=== PATIENT | male | born 1950 | race Caucasian/White ===

== ENCOUNTER 2020-02-14 06:19 | Emergency (ER) | payer MEDICARE, OTHER ==
[2020-02-14 07:17] LABS: #Eosinphils 0.1 thou/uL (0.0-0.7); #Lymphocytes 1.3 thou/uL (1.20-3.40); #Monocytes 0.6 thou/uL (0.11-0.59); #Neutrophils 6.7 thou/uL (1.40-6.50); %Basophils 0.1 % (0.0-1.0); %Eosinophils 0.7 % (0.0-10.0); %Lymphocytes 14.9 % (21.0-51.0); %Monocytes 6.4 % (0.0-10.0); Hemoglobin 15.9 g/dL (14.0-18.0); Mean Corpuscular HGB CONC 33.6 g/dL (32.0-36.0); Mean Corpuscular Hemoglobin 31.4 pg (27.0-31.0); Mean Corpuscular Volume 93.3 fL (78.0-98.0); Mean Platelet Volume 7.1 fL (7.4-10.4); Platelet Count 218 thou/uL (130-400); RBC Distribution Width 13.6 % (11.5-14.5); Red Blood Cell (RBC) Count 5.06 mill/uL (4.70-6.10); White Blood Cell (WBC) Count 8.6 thou/uL (4.8-10.8)
[2020-02-14 07:23] LABS: ALT (SGPT) 31 U/L (8-55); AST (SGOT) 26 U/L (5-34); Albumin 4.3 g/dL (3.4-4.8); Alkaline Phosphatase 58 U/L (40-110); Anion Gap 13 mmol/L (10-20); BUN (Urea Nitrogen) 16 mg/dL (8.4-25.7); Bilirubin, Total 0.8 mg/dL (0.2-1.2); Calc. Creatinine Clearance 0 mL/min (70-130); Carbon Dioxide 25 mmol/L (23-31); Chloride 105 mmol/L (98-107); Estimated GFR-MDRD 74; Globulin 2.4 g/dL (2.4-3.5); Glucose 117 mg/dL (80-115); Protein, Total 6.7 g/dL (5.8-8.1); Sodium 139 mmol/L (136-145)
--- NOTE | 2020-02-14 07:44 | RAD ---
Chest one view HISTORY: Dyspnea. COMPARISON: 04/07/2009. FINDINGS: Cardiac silhouette. Vasculature is upper limits of normal. Projecting over the right posterior lung base is an ill-defined parenchymal opacity. Subtle density a t the left posterior lung base may also represent an infiltrate. No evidence of pneumothorax. IMPRESSION : Right basilar (and likely left basilar) parenchymal infiltrate in the setting of borderline pulmonary vascular prominence. Clinical correlation regarding other signs and symptoms of multifocal viral pneumonitis versus pulmonary vascular congestion is required.
[2020-02-14] MEDS ORDERED: Aspirin Chewable 81 MG TAB ONE (07:47)
[2020-02-14] MEDS ORDERED: cefTRIAXone\\ROCEPHIN 2 GM VIAL ONE (07:47)
[2020-02-14 08:05] LABS: Prothrombin Time 12.9 sec (12.0-14.7)
[2020-02-14] MEDS ORDERED: Azithromycin 500 MG VIAL ONE (08:43)
[2020-02-15 16:01] LABS: SARS-CoV-2 MS2 Positive; SARS-CoV-2 N Gene Negative; SARS-CoV-2 S Gene Negative; SARS-CoV-2 orf1ab Negative
== END 2020-02-14 10:15 | disposition home or self-care (01) ==
LOC: ERS 06:19
DX: J18.9 Pneumonia, unspecified organism (principal); I48.91 Unspecified atrial fibrillation; G47.30 Sleep apnea, unspecified; Z79.899 Other long term (current) drug therapy; Z79.82 Long term (current) use of aspirin; Z20.828 Contact with and (suspected) exposure to other viral communicable diseases
CPT/HCPCS: 71045; 80053; 83605; 83880; 84484; 85025; 85610; 87040; 93005; 96365; 96375; 99285; U0003; 36415; 87635; J0456; J0696

== ENCOUNTER 2020-12-13 09:20 | Emergency (ER) | payer MEDICARE, OTHER ==
[2020-12-13 10:21] LABS: #Eosinphils 0.1 thou/uL (0.0-0.7); #Lymphocytes 1.1 thou/uL (1.20-3.40); #Monocytes 0.5 thou/uL (0.11-0.59); #Neutrophils 8.5 thou/uL (1.40-6.50); %Basophils 0.3 % (0.0-1.0); %Lymphocytes 10.4 % (21.0-51.0); %Monocytes 4.8 % (0.0-10.0); %Neutrophils 83.6 % (42.0-75.0); Hemoglobin 16.1 g/dL (14.0-18.0); Mean Corpuscular Hemoglobin 30.6 pg (27.0-31.0); Mean Corpuscular Volume 92.7 fL (78.0-98.0); Mean Platelet Volume 7.4 fL (7.4-10.4); Platelet Count 234 thou/uL (130-400); RBC Distribution Width 12.8 % (11.5-14.5); Red Blood Cell (RBC) Count 5.27 mill/uL (4.70-6.10); White Blood Cell (WBC) Count 10.2 thou/uL (4.8-10.8)
[2020-12-13 10:46] LABS: ALT (SGPT) 23 U/L (8-55); AST (SGOT) 23 U/L (5-34); Albumin 4.2 g/dL (3.4-4.8); Alkaline Phosphatase 66 U/L (40-110); Anion Gap 12 mmol/L (10-20); BUN (Urea Nitrogen) 14 mg/dL (8.4-25.7); Bilirubin, Total 0.9 mg/dL (0.2-1.2); Calc. Creatinine Clearance 0 mL/min (70-130); Calcium 9.2 mg/dL (7.8-10.44); Carbon Dioxide 29 mmol/L (23-31); Chloride 102 mmol/L (98-107); Globulin 3.1 g/dL (2.4-3.5); Glucose 115 mg/dL (80-115); Potassium 3.8 mmol/L (3.5-5.1); Protein, Total 7.3 g/dL (5.8-8.1); Sodium 139 mmol/L (136-145)
[2020-12-13] MEDS ORDERED: Iopamidol 370 76% 50 ML VIAL FS ONE (11:08)
[2020-12-13] MEDS ORDERED: Iopamidol-370 76% 500 ML 1 ML ONE (11:08)
[2020-12-13 12:29] LABS: Bilirubin Negative (Negative); Blood, Urine Negative (Negative); Clarity Clear (Clear); Glucose, Urine (Dipstick) Normal (Negative); Ketone, Urine Negative (Negative); Leukocyte Negative Leu/uL (Negative); Nitrite Negative (Negative); Protein, Urine (Dipstick) Negative (Neg-Trace); Specific Gravity, Urine 1.011 (1.002-1.036); Urobilinogen Normal mg/dL (Less than 2); pH, Urine 6.5 (5.0-9.0)
== END 2020-12-13 13:33 | disposition home or self-care (01) ==
LOC: ERS 09:20
DX: J18.9 Pneumonia, unspecified organism (principal); I48.91 Unspecified atrial fibrillation; G47.30 Sleep apnea, unspecified
CPT/HCPCS: 71045; 71275; 80053; 81003; 85025; 85730; 93005; Q9967